=== PATIENT | male | born 1995 | race Caucasian/White ===

== ENCOUNTER 2016-11-30 08:57 | Inpatient (IN) | payer OTHER ==
[~2016-11-30] VITALS: Ht 182.9 cm; Wt 80.5 kg
--- NOTE | ~2016-11-30 | RESCARESUM ---
"PATIENT: CAMRON MCMULLEN | | [facility] UNIT #: [id number] | [address] AGE/SEX: 21 M : [birth year] | [address] | [place] [address] ADMIT/REG DATE: 11/30/16 | ROOM: [facility] LOC: ADTC | ADTC | Summary of Residential Care Primary Counselor: Regis Norman LM,[facility] [place][NOTE 2] Date of Admission: 30 NOVEMBER 2016 Date of Discharge: 05 DECEMBER 2016 Referral Source: [place] [address] [address] Primary Care Provider Prior to Admission: NONE IDENTIFIED Admitting Diagnosis: F10.20 ALCOHOL USE DISORDER, SEVERE F15.20 SIMULANT USE DISORDER, SEVERE Discharge Diagnosis: SAME ABOVE Goals Achieved: CLIENT LEFT TREATMENT AMA AFTER FIVE DAYS. Continued Obstacles to Sobriety/Relapse Issues: DENIAL/POOR IMPULSE CONTROL Family Issues Addressed: NONE Y Individual Therapy Y Group Therapy N Educational Series on Substance Abuse N Parents/Significant Others Attended Family Program Y/N Accepting of Substance Abuse Problem Completed AA Step # NONE During This Level of Care Significant Incidences During Treatment: CLIENT LEFT TREATMENT AMA ON HIS FIFTH DAY. Reason For Discharge: Y Left Tx Against Medical Advice/Treatment Goals Not Complete Continuing Care Plan/Recommendations: Y Sponsor Y AA Meetings/NA Meetings Y / Way House Y Client needs to satisfactorily complete residential treatment program followed by a [facility] Specific Continuing Care Plan: CLIENT NEEDS TO SATISFACTORILY COMPLETE A RESIDENTIAL TREATMENT PROGRAM FOLLOWED BY [facility]TH[facility] RESIDENCE IN A [place]TERM [place]. CLIENT NEEDS TO FOLLOW ANY RECOMMENDED GUIDELINES OF THE RESIDENTIAL TREATMENT PROGRAM, ANY AND ALL AFTERCARE RECOMMENDATIONS OF THE RESIDENTIAL TREATMENT PROGRAM. ONCE CLIENT HAS SATISFACTORILY COMPLETE REQUIREMENTS AT THE [facility], HE NEEDS TO FOLLOW ANY AFTERCARE RECOMMENDATIONS MADE BY THE [facility] STAFF. CLIENT NEEDS TO ATTEND TWO TO THREE AA/NA MEETINGS EACH WEEK AND WORK WEEKLY WITH AN AA/NA SPONSOR. PATIENT: CAMRON MCMULLEN | | [facility] UNIT #: [id number] | [address] AGE/SEX: 21 M : [birth year] | [address] | [place] [address] ADMIT/REG DATE: 11/30/16 | ROOM: [facility] LOC: ADTC | ADTC | Summary of Residential Care PRIMARY COUNSELOR: REGIS [facility]"
--- NOTE | 2016-11-30 11:11 | NUR ---
ADMISSION NOTE Client is a 21 y/o single, male referred to treatment by probation and brought here today by his significant other from his home in [place] where he resides with his parents. Client states NKMA and brings no medications with him today. Client states DOC is meth, last used 4-5 days ago in an unknown amount that client describes as small. Client states alcohol use, he was uncertain a to his last use of alcohol, stating that it had been quite a while. "I just drink 'til I' dumb." Client states marijuana use at least two weeks in the past. Client was searched, no contraband found. Rights/Responsibilities: Copy given and explained to client. Signed and accepted by client. Client oriented to physical lay out of the ADTC unit, given Big Book and admission packet. A Wagner was assigned. Diomedes
--- NOTE | 2016-11-30 16:20 | NUR ---
Step education/ Focus was on step 10 "continued to take personal inventory and when we were wrong promply admitted it." Gave them a set of questions to answer on paper and then as a group answered the first 3 and the rest each person shared what they had written. One of the questions was when was the last time I caught myself doing or saying something I did not feel good about? This client participated.
--- NOTE | 2016-11-30 17:36 | NUR ---
INITIAL CONTACT: Spent some time with client and welcomed him to treatment. Client said he relapsed and violated probation. He looks good, physically, so it doesn't look like he has been back out using very long. He was encoruaged to start working on initial pacekt GETTING STARTED IN TREATMENT. I will meet with his 12/04
--- NOTE | 2016-11-30 18:33 | NUR ---
Education: 1 Hour. Clients watched Picking up the Pieces for education.
--- NOTE | 2016-11-30 23:20 | NUR ---
tech note: Client was seen by the DR. Client went on a walk for recreation & was checked into his room. Client attended onsite AA meeting. Client gave his first intro. SE: Getting here.
--- NOTE | 2016-12-01 04:07 | NUR ---
Bed note: Client was moitionless with eyes closed at all bed checks.
--- NOTE | 2016-12-01 12:40 | NUR ---
Group 1.5 Hr Ratio 1:11/Topics today were orientatinmg two new members to group rules and goals, feelings letters anddealing with childhood issues. Client shared very little but he was orientated to group rules and goals.
--- NOTE | 2016-12-01 13:00 | NUR ---
PEER REVIEWS 1 HR: Clt participated in peer review process and was able to give open and honest feedback to those receiving a review.
--- NOTE | 2016-12-01 13:30 | NUR ---
Tech Note: Client went on group walk for recreation. Clt is working on Getting Started.
--- NOTE | 2016-12-01 16:31 | NUR ---
FAMILY NOTE: Attempted to reach client's mom but was unsuccessful.
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
--- NOTE | 2016-12-01 16:38 | NUR ---
TRAUMA NOTE: Client denies any trauma history.
--- NOTE | 2016-12-01 23:02 | NUR ---
TECH NOTE: Client participated in reading guidelines, watched tv/movies. attended optional off site AA meeting SE: supper
--- NOTE | 2016-12-02 04:47 | NUR ---
BED NOTE: Client was in bed, motionless with eyes closed all three bed checks.
--- NOTE | 2016-12-02 16:30 | NUR ---
Tech Note: Client is working on Toxic Relationships pkt.
--- NOTE | 2016-12-02 23:37 | NUR ---
TECH NOTE: Client played Catch Phrase for REC, attended off site AA meeting, and watched TV/movies. SE: supper
--- NOTE | 2016-12-03 04:19 | NUR ---
Bed Note: Clt lay motionless in bed with eyes closed showing no distress at all bed checks.
--- NOTE | 2016-12-03 16:14 | NUR ---
Tech Note: Client participated in Big Book Study and stated that he is working on, "Toxic Relationships." Client went to [facility] in the morning and for an optional outdoor walk in the afternoon.
--- NOTE | 2016-12-03 22:43 | NUR ---
Client attended the VerenicePanel and participated in Community Clean. SE:Amy
--- NOTE | 2016-12-04 04:03 | NUR ---
BED NOTE: Client was in bed, and motionless at all three bed checks.
--- NOTE | 2016-12-04 10:04 | NUR ---
Carlito notes: Client is working on BB and mtg with carlota
--- NOTE | 2016-12-04 11:16 | NUR ---
AM Group 1.5hr/ 21:2 Clients all read The Wall an allegory and discussed how it related to the 12 steps/recovery. Each client florencia and shared their wall.
--- NOTE | 2016-12-04 14:00 | NUR ---
Educational note: Client attended speaker for educationLaw
--- NOTE | 2016-12-04 16:00 | NUR ---
RECOVERY 101 1 HR/ Clients all filled out consequences list to look at each chemical they have ever used and how many consequences were experiences with each drug. Many shared what they learned from this and their top 3 consequences, they also discussed early stage symptoms of their addiction. Counselor asked the group what would be a definition that includes all stages and this was discussed as well at stages of Denial, Anger, Compliance/defiance, admittance, acceptance and Surrender.
--- NOTE | 2016-12-04 17:00 | NUR ---
FAMILY CONTACT: Talked with client's mom today. She said she is not sure she will participate in client's treatment this time. Mom said when she came a year ago, all she heard was focus on the disease and that she is an enabler. She did not deny the enabling and admitted that they still allow client to live in their home. We talked at length. I validated her hurt, anger and frustration for all they have tried to do to be supportive of his recovery. She may reconsider and at least attend a family session, may a family group.
--- NOTE | 2016-12-04 20:39 | NUR ---
Education: 1 Hour. Client attended lecture on "Adult Children of Alcoholics" presented by staff.
--- NOTE | 2016-12-04 23:08 | NUR ---
Tech Note: Client played a game for rec and attended the on unit N.A.Meeting. SE:_Co-Chairing the N.A.Meeting
--- NOTE | 2016-12-05 04:18 | NUR ---
Bed Note: Client was in bed, and motionless at all three bed checks.
--- NOTE | 2016-12-05 13:13 | NUR ---
Tech Note: Nutritional Services presented information for the 1:00 speaker meeting. Client is working on Addictive Relationships.
--- NOTE | 2016-12-05 14:14 | NUR ---
GROUP 1.5 HRS. 1:10 Clients oriented new peer to purpose and rules of group. Discussion included step 1 assignment and good-bye letter to addiction. This client was mostly quiet but appeared attentive.
--- NOTE | 2016-12-05 16:13 | NUR ---
Relapse Prevention, 09/15, 1.0 hours, Client attended and actively participated in relapse prevention education which focused on top 5 relapse triggers and how to avoid them.
--- NOTE | 2016-12-05 17:36 | NUR ---
Education Note: Topic was "[place] From Shame" presented by Noemy.
--- NOTE | 2016-12-05 22:50 | NUR ---
TECH NOTE: Client did crafts/beads for REC and attended on site AA meeting. Client called on-call counselor at 2230 to discuss wanting to leave tx. SE: meeting with counselor
--- NOTE | 2016-12-05 23:22 | NUR ---
DISCHARGE NOTE At 10:30 Client complained that he wanted to leave. Suggested him talk to on-call counselor. Spoke with her for a while but insisted on leaving. Made personal phone calls for a ride. Stripped bed, packed belongings with roommate present. AMA formed was signed and Occurance report filed.
--- NOTE | 2016-12-10 15:25 | HP ---
ADMIT: 11/30/2016 RM/LOC: Jason [facility] MR#: [id number] [address] [address] [address]RON [place]EN [place], [place] [id number] History and Physical SEX: M AGE: 21 : 1995 DATE OF SERVICE: CHIEF COMPLAINT: Chemical dependency. HISTORY OF PRESENT ILLNESS: Camron is a 21-year-old single white male, admitted to residential level treatment at [facility] on 11/30/2016. He had previously been through treatment from November to December of 2015. He relapsed on drugs and alcohol in April and May of 2016. He subsequently received a DUI on alcohol in July 2016. He was subsequently referred back to residential level treatment. Camron's drug of choice on admission is methamphetamine. He first started using meth at around 17-18 years of age. He smoked and snorted on weekends. He denies ever doing IV drugs. Prior to treatment in 2015, he was using about a gram a day. He states he was clean and sober until May 2016. He started smoking daily off and on and was using up to a gram a day. He denies any IV drug use. His last meth use was around 5 days prior to admission. Second drug of choice is probably alcohol. He first started drinking alcohol when he was around 14 with friends. In high school, he drank a six-pack twice a month. He states he had a couple of MIP's when he was young. After going through treatment, he relapsed on alcohol in April 2016. He states he was drinking 8-12 beers on weekends. July 2016, he got a DUI with blood alcohol of 0.125. He has been on probation. He was subsequently referred for residential level treatment. He denies any history of alcohol withdrawal seizures or hallucinations. Third drug of choice is cannabis. He first started smoking pot around 15. Initially, he used about 0.25 ounce of pot 3-4 times a week in high school. Eventually got up to a 0.5 ounce of pot a day. Following treatment in December of 2015, he states he has hardly used pot at all. He states he has only used 1-2 joints sporadically approximately once a month. His last marijuana use was a month ago. He admits to limited other drug use in the distant past and states he has not used any other drugs since going through treatment last spring. PAST MEDICAL HISTORY: Operations none. Illnesses none. MEDICATIONS: None. ALLERGIES: NONE KNOWN. SOCIAL HISTORY: Is that of a 21-year-old single, white male. He has a 23- month-old daughter and his significant other is currently . He was previously employed at [employer]. FAMILY HISTORY: Heart attack, strokes, and cancers. No family history of drug or alcohol use disorder noted. ADMIT: 11/30/2016 RM/LOC: Jason [facility] MR#: [id number] [address] [place] [id number] [facility] [address] [place] [address] History and Physical SEX: M AGE: 21 : 1995 PHYSICAL EXAMINATION: VITAL SIGNS: Include height of 6 feet with a weight of 80 kg, blood pressure 120/77, a pulse of 80, and a temp of 97.6. GENERAL APPEARANCE: Is that of a 21-year-old male who is alert, oriented, in no acute distress. HEENT: Pupils are reactive. Extraocular muscles intact. TMs normal. Throat normal. NECK: Normal. HEART: Regular without murmur. LUNGS: Clear. ABDOMEN: Soft, nontender, benign. GENITOURINARY: Deferred. RECTAL: Deferred. EXTREMITIES: Reveal no clubbing, cyanosis, or edema. NEURO: Exam reveals grossly normal to light touch, strength, DTRs. ASSESSMENT AND PLAN: 1. Stimulant use disorder, severe. 2. Alcohol use disorder, severe. 3. Cannabis use disorder, moderate. 4. Tobacco dependency. PLAN: We will place him on a multivitamin and thiamine given his history of alcohol abuse dependency. We will proceed with drug and alcohol abuse dependency treatment and counseling and further evaluation and management based on course during hospitalization. Please see his hospital record for the details. Krystian Morton MD/ june JOB #: [id number] CC: Krystian Morton, Attending Physician NO FAMILY PHYSICIAN, Family Physician
--- NOTE | 2017-01-15 07:51 | DS ---
ADMIT: 11/30/2016 RM/LOC: Jason [facility] MR#: [id number] [address] [address] CAMRON [place] [address] General Discharge Summary SEX: M AGE: 21 : 1995 ADMISSION DATE: 11/30/2016 DISCHARGE DATE: 12/05/2016 INDICATION FOR HOSPITALIZATION: Camron is a 21-year-old single, white male, admitted to residential level treatment at [facility] after previous treatment November to December 2015. He had relapsed on drugs and alcohol. His drug of choice on admission was methamphetamines. Second drug of choice is alcohol. Third drug of choice is cannabis. Please see his admission H and P for the details regarding his history of present illness, past medical history, physical exam, and assessment at time of hospitalization. HOSPITAL COURSE: On admission, Camron was admitted to our residential level treatment [facility]. He was started on multivitamin and thiamine given his history of alcohol abuse and dependency. His primary care counselor assigned was Yunior Roth. During treatment, he underwent individual and group therapy sessions on drug and alcohol abuse dependency. He completed no steps of Alcoholics Anonymous. He left treatment against medical advice after 5 days. He had poor impulse control and was in denial of his substance abuse problems. Reason for discharge was leaving against medical advice. Aftercare recommendations include completion of residential level treatment program with 6 to 9 months in the half-way house with aftercare program including sponsor assignment and active AA and NA meeting involvement. LABORATORY AND X-RAY DATA: During hospitalization, none. DISCHARGE MEDICATIONS: None as he left AMA. FINAL DISCHARGE DIAGNOSES: Include: 1. Stimulant use disorder, severe. 2. Alcohol use disorder, severe. 3. Cannabis use disorder, moderate. 4. Tobacco dependency. PROCEDURES: Include failed attempts at drug and alcohol abuse dependency. Please see his hospital record for the details. Krystian Morton MD/ june JOB #: [id number] CC: Krystian Morton MD, Attending Physician NO FAMILY PHYSICIAN, Family Physician
== END 2016-12-05 23:24 | disposition left against medical advice (07) | DRG 894 ==
LOC: ADTC 08:57
PROVIDERS: ADMIT Family Medicine
PROC: HZ34ZZZ Individual Counseling for Substance Abuse Treatment, Interpersonal (ICD-10-PCS; principal; 2016-11-30)
DX: F15.20 Other stimulant dependence, uncomplicated (principal); F10.20 Alcohol dependence, uncomplicated; F12.20 Cannabis dependence, uncomplicated; F17.210 Nicotine dependence, cigarettes, uncomplicated; Z65.3 Problems related to other legal circumstances